=== PATIENT | male | born 1980 | race Caucasian/White ===

== ENCOUNTER 2024-06-19 14:47 | Emergency (ER) | payer BC, SELFPAY ==
[~2024-06-19] VITALS: Ht 162.6 cm; Wt 94.7 kg
[2024-06-19 14:59] VITALS: TEMP 98.4
[2024-06-19 15:14] LABS: BASO # 0.1 10^3/uL (0.0-0.2); BASO % 0.5 % (0.0-1.0); EOS # 0.1 10^3/uL (0.0-0.5); EOS % 0.3 % (0.0-3.0); HEMATOCRIT 45.3 % (42.0-52.0); HEMOGLOBIN 15.4 g/dl (13.5-17.5); LYMPH # 1.4 10^3/uL (1.5-5.0); LYMPH % 9.6 % (24.0-44.0); MEAN CORPUSCULAR VOLUME 91.3 fl (80.0-96.0); MONO # 1.1 10^3/uL (0.0-0.8); MONO % 7.6 % (2.0-8.0); NEUTROPHILS % 80.9 % (36.0-66.0); PLATELET COUNT, AUTOMATED 274 10^3/uL (150-450); RED BLOOD COUNT 4.96 10^6/uL (4.30-6.10); WHITE BLOOD COUNT 14.8 10^3/uL (4.0-10.0)
[2024-06-19 15:30] LABS: INR 0.98; PARTIAL THROMBOPLASTIN TIME 24.4 SECONDS (24.8-34.2); PROTHROMBIN TIME 13.3 SECONDS (12.5-14.5)
[2024-06-19] MEDS ORDERED: ISOVUE-370 76% 100ML VIAL As Ordered ONE (15:37)
[2024-06-19 15:42] LABS: CK-MB VALUE MASS 3.1 NG/ML (<3.6); LIPASE 37 U/L (12-53)
[2024-06-19 15:43] LABS: ETHYL ALCOHOL (ETHANOL) < 0.003 % (0.000-0.010)
[2024-06-19 15:44] LABS: ALKALINE PHOSPHATASE 58 U/L (40-129); ALT/SGPT 52 U/L (7.0-40); AMYLASE 62 U/L (30-118); AST/SGOT 43 U/L (<34); BILIRUBIN,DIRECT 0.2 MG/DL (<0.4); BILIRUBIN,TOTAL 0.5 MG/DL (0.3-1.2); TOTAL PROTEIN 7.4 G/DL (5.7-8.2)
[2024-06-19 15:49] LABS: CPK CREATINE PHOSPHOKINASE 511 U/L (46-171)
[2024-06-19] MEDS: BOOSTRIX VACCINE (TETANUS/DIPHTH/ACEL. PERTUSSIS) 0.5ML SYR IM ONE (17:02)
[2024-06-19] MEDS: PERCOCET 5MG/325MG TAB PO ONE (17:52)
[2024-06-19 18:00] VITALS: BP 172/93; O2SAT 94
[2024-06-19] MEDS ORDERED: PERC5TAB12 PO (18:12)
[2024-06-19] MEDS: OXYCODONE/APAP 5MG/325MG(HOME DOSE PACK) PO ONE (18:55)
== END 2024-06-19 19:20 | disposition home or self-care (01) ==
LOC: M ED 14:47 → EDBD 14:47 → M ED 19:20
DX: S32.010A Wedge compression fracture of first lumbar vertebra, initial encounter for closed fracture (principal); S32.020A Wedge compression fracture of second lumbar vertebra, initial encounter for closed fracture; J98.11 Atelectasis; V86.52XA Driver of snowmobile injured in nontraffic accident, initial encounter; Y92.9 Unspecified place or not applicable; Y93.9 Activity, unspecified; Y99.9 Unspecified external cause status
CPT/HCPCS: 70450; 71260; 72125; 74177; 80047; 80076; 82077; 82150; 82550; 82553; 83605; 83690; 84484; 85025; 85610; 85730; 86850; 86900; 86901; 90471; 90715; 93041; 94760; 99285; Q9967